=== PATIENT | female | born 1965 | race Two or more races ===

== ENCOUNTER 2021-02-03 09:49 | Emergency (ER) | payer OTHER ==
[~2021-02-03] VITALS: Ht 149.9 cm; Wt 59.9 kg
== END 2021-02-03 14:42 | disposition home or self-care (01) ==
LOC: ER 09:49
DX: U07.1 COVID-19 (principal); J12.82 Pneumonia due to coronavirus disease 2019; R06.02 Shortness of breath

== ENCOUNTER 2022-02-21 18:27 | Emergency (ER) | payer OTHER ==
[~2022-02-21] VITALS: Ht 149.9 cm; Wt 68.0 kg
[2022-02-21] MEDS ORDERED: DICLOFENAC POTA50 MG PO (21:54)
== END 2022-02-21 22:40 ==
LOC: ER 18:27
DX: S92.911A Unspecified fracture of right toe(s), initial encounter for closed fracture (principal); W22.8XXA Striking against or struck by other objects, initial encounter; Y93.89 Activity, other specified; Y92.89 Other specified places as the place of occurrence of the external cause